=== PATIENT | male | born 1955 | race Caucasian/White ===

== ENCOUNTER 2019-10-27 10:12 | Inpatient (IN) | payer MEDICARE, OTHER ==
[2019-10-27] MEDS ORDERED: Ketorolac Tromethamine 30 MG/ML VIAL ONE (12:22)
[2019-10-27 12:38] LABS: #Basophils 0.1 thou/uL (0.0-0.2); #Eosinphils 0.1 thou/uL (0.0-0.7); #Lymphocytes 1.8 thou/uL (1.20-3.40); #Monocytes 0.8 thou/uL (0.11-0.59); #Neutrophils 5.3 thou/uL (1.40-6.50); %Basophils 1.4 % (0.0-1.0); %Eosinophils 1.7 % (0.0-10.0); %Lymphocytes 21.6 % (21.0-51.0); %Monocytes 9.7 % (0.0-10.0); %Neutrophils 65.6 % (42.0-75.0); Hemoglobin 16.4 g/dL (14.0-18.0); Mean Corpuscular HGB CONC 34.5 g/dL (32.0-36.0); Mean Corpuscular Hemoglobin 30.7 pg (27.0-31.0); Mean Corpuscular Volume 88.9 fL (78.0-98.0); Mean Platelet Volume 6.7 fL (7.4-10.4); Platelet Count 278 thou/uL (130-400); RBC Distribution Width 11.7 % (11.5-14.5); Red Blood Cell (RBC) Count 5.33 mill/uL (4.70-6.10); White Blood Cell (WBC) Count 8.1 thou/uL (4.8-10.8)
[2019-10-27] MEDS ORDERED: Acetaminophen 325 MG TAB PO PRN (12:50)
[2019-10-27] MEDS ORDERED: traMADol HCl 50 MG TAB PO PRN (12:50)
[2019-10-27] MEDS ORDERED: Ketorolac Tromethamine 30 MG/ML VIAL IVP PRN (12:50)
[2019-10-27] MEDS ORDERED: Morphine 2 MG/ML SYRINGE SLOW IVP PRN (12:50)
[2019-10-27] MEDS ORDERED: Acetaminophen/Codeine 30-300mg Tablet PO PRN (12:50)
[2019-10-27 13:00] LABS: ALT (SGPT) 15 U/L (8-55); AST (SGOT) 14 U/L (5-34); Albumin 4.3 g/dL (3.4-4.8); Alkaline Phosphatase 57 U/L (40-110); Anion Gap 12 mmol/L (10-20); BUN (Urea Nitrogen) 27 mg/dL (8.4-25.7); Calc. Creatinine Clearance 0 mL/min (70-130); Calcium 9.3 mg/dL (7.8-10.44); Carbon Dioxide 27 mmol/L (23-31); Chloride 101 mmol/L (98-107); Estimated GFR-MDRD 83; Globulin 2.5 g/dL (2.4-3.5); Glucose 111 mg/dL (80-115); Potassium 3.2 mmol/L (3.5-5.1); Protein, Total 6.8 g/dL (5.8-8.1); Sodium 137 mmol/L (136-145)
--- NOTE | 2019-10-27 13:56 | MRI ---
Exam: THORACIC SPINE MRI WITH AND WITHOUT CONTRAST: HISTORY: Leg numbness. Weakness. Difficulty emanating. Postop back pain. COMPARISON: None. FINDINGS: Heterogeneous T1 marrow signal intensity of the thoracic vertebra. Mild deformity along the superior endplate of T6, T7 which is felt to be chronic. Intrinsic T1 hypointensity with associated T2 and STIR hyperintensity at the T12 vertebral body. There does appear to be homogeneous enhancement. Lacie cterization is incomplete. The superior focus does have some intrinsic T1 hyperintensity. Findings may represent a complex cyst with a fat fluid level. The superior portion does not have signal intens ity on the postcontrast fat saturated images. Visualized mediastinum, lung parenchyma and solid organs have appropriate signal intensity. The thoracic cord has a normal size and signal intensity. No cord expansion. No cord malacia. Conus m edullaris terminates beyond the T12 vertebral body level. Postcontrast images do not demonstrate any pathologic cord enhancement. C7-T1: Broad-based disc bulge with at least mild central canal stenosis. T1-T2: No significant central canal stenosis. T2-T3: Central disc herniation. No significant central canal stenosis. T3-T4 through T10-T11: No posterior disc abnormality. No significant central canal stenosis. T11-T12: Mild loss of disc space height. Broad-based disc bulge with at least [id number] centra l canal stenosis. Mild flattening of the thoracic cord. IMPRESSION: 1. Degenerative changes of the thoracic spine as above. 2. No pathologic enhancement of the thoracic cord. 3. Mixed signal lesion at the T12 vertebral body. Complex osseous cyst is favored with a fat fluid le edith. Transcribed Date/Time: 10/27/2019 2:09 PM
[2019-10-27] MEDS ORDERED: Magnevist 469MG/ML 20 ML VIAL ONE ×2 (14:18)
--- NOTE | 2019-10-27 14:45 | MRI ---
MRI LUMBAR SPINE WITH AND WITHOUT CONTRAST: DATE: 10/27/2019 HISTORY: 64-year-old male with myelopathy and postoperative low back pain. COMPARISON: None TECHNIQUE: Multiple sequences obtained in axial and sagittal planes, pre and post IV injection of gadolinium-bas ed contrast agent. FINDINGS: There are 5 lumbar-type vertebrae. Vertebral body heights are maintained. Exaggerated lordosis of low er lumbar spine. At all levels superior to L3-4, the spinal canal is diffusely small in caliber on a congenital basis due to developmentally short pedicles. This is exacerbated by lumbar spondylosis a s described below. At L3-4 and all levels inferior to it, there are laminectomies relieving the central spinal canal stenosis. There is intramedullary T2-hyperintense signal beginning at upper L1 l evel, and extending down to the conus medullaris at mid L2 level. This fluid signal intensity which resembles a syrinx, occupies the right side of the spinal cord. There is a small second such syrinx c omponent occupying midline, which begins at mid L1 and extends down to L1-2 level. There is no definite intramedullary enhancement. However, there is enhancement of intrathecal nerve roots, beginn ing at approximately mid L1 level, and continuing with enhancement of clumped cauda equina nerve roots throughout all levels inferior to it. The enhancement and clumping are consistent with arachnoi ditis. There is no evidence of solid enhancing neoplastic tumor within the spinal canal. T12-L1:Shallow, broad-based central and bilateral paracentral disc herniation, which indents the spin al cord, displacing it slightly posteriorly, and causing moderate central spinal canal stenosis. No neural foraminal stenosis. L1-2:Mild to moderate disc space narrowing. Diffuse disc bulge and possible superimposed shallow cent ral disc protrusion. Moderate central spinal canal stenosis. Mild to moderate bilateral neural foraminal stenosis. L2-3:Moderate disc space narrowing. Somewhat large diffuse disc bulge, superimposed on the developmen tally small caliber spinal canal, which, together with ligamentum flavum thickening and mild degenerative facet hypertrophy, results in severe central spinal canal stenosis with crowding of the cauda equina and obliteration of CSF signal. Moderate bilateral neural foraminal stenosis. L3-4:Bilateral pedicle screws at L3 and L4. Midline laminectomy defect. Mild central spinal canal cheng nosis. Lateral recess stenosis bilaterally. Mild retrolisthesis of L3 on L4. Interbody cage material in the disc space. Moderate disc space narrowing. Possible partial ankylosis between the end plates. Moderate bilateral neural foraminal stenosis. L4-5:Interbody cage material. Interbody disc space maintained with cage material. Midline laminectomy defect. No central spinal canal stenosis. No high-grade neural foraminal stenosis. Anteriorly placed screws at L4 vertebral body. L5-S1:Midline laminectomy defect. No central spinal canal stenosis. No high-grade neural foraminal st enosis. Interbody cage material. Bilateral pedicle screws at L5 and S1. Anteriorly placed screws at L5 vertebral body. IMPRESSION: 1) severe central spinal canal stenosis at L2-3. 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 Recommend co rrelation with the density of this fluid (hyperdense?) on the recent outside CT myelogram. 3) conus medullaris terminates at the lowest limit of normal, approximately L2-3 4) status post midline laminectomies, and posterior lumbar interbody fusion with hardware, at L3-4, L 4-5, and L5-S1. 5) arachnoiditis. 6) lumbar spondylosis, with multilevel degenerative disc disease at all levels superior to L3.
[2019-10-27] MEDS: HYDROcodone/Acetaminophen 7.5/325 mg Tablet PO PRN (15:02)
[2019-10-27 15:29] VITALS: BMI 25.7
[2019-10-27] MEDS: Dexamethasone 4 MG TAB PO SCH (20:02)
[2019-10-27] MEDS ORDERED: clonazePAM 0.5 MG TAB PO SCH (22:15)
[2019-10-27] MEDS: tiZANidine HCl 4 MG TAB PO PRN (22:26)
--- NOTE | 2019-10-28 01:40 | HP ---
CHIEF COMPLAINT: Low back pain and bilateral leg pain and weakness. HISTORY OF PRESENT ILLNESS: Mr. Brower is a 64-year-old gentleman, who presents for increasing low back pain and bilateral leg symptoms. This has been chronic for many years; however, it acutely worsened last week after he underwent a CT myelogram of the lumbar spine, during which, contrast was injected into his spinal cord. Since then, he has had worsened pain, increased leg weakness, and increased difficulty ambulating with his legs giving out to a point where he needs to lay down. He also has had a urinary retention and had a Christian catheter placed last weekend. At this time, the patient reports bilateral leg pain that is approximately equal in severity, somewhat greater in the right leg. He also reports lower extremity paresthesias and dysesthesias in both feet. The patient has a prior history of anterior and posterior lumbar spine instrumented fusion at an outside institution. Recent imaging including CT of the lumbar spine and CT myelogram of the lumbar spine demonstrated potential fusion at the levels previously operated on as well as what appears to be an L3 screw causing direct nerve root compression. Our team will obtain MRIs of the thoracic and lumbar spine with and without contrast for further evaluation and surgical planning. However, based on prior imaging, it appears that he has stenosis at L2-L3 and at this time, our current surgical plan will be to perform L2-L3 laminectomy, partial facetectomies, and foraminotomies with removal of the left L3 screw. PAST MEDICAL HISTORY: Hypertension, hypothyroidism, anxiety, and depression. PAST SURGICAL HISTORY: Anterior and posterior lumbar spine instrumented fusion at outside institution. SOCIAL HISTORY: No tobacco use. MEDICATIONS: See list. No aspirin or other anticoagulants. ALLERGIES: NO KNOWN DRUG ALLERGIES. REVIEW OF SYSTEMS: Positive for low back pain, bilateral leg pain, bilateral leg weakness, bilateral foot paresthesias and dysesthesias, and urinary retention. Otherwise, 12-point review of systems is negative. PHYSICAL EXAMINATION: The patient is awake, alert, and appropriate. A and O x3. The patient appears somewhat uncomfortable but is in no acute distress. He has trace weakness in his iliopsoas myotome, otherwise he has 5/5 strength throughout the bilateral lower extremity myotomes. Subjective medial and lateral decreased sensation in both feet. Gait was not assessed at this time. Flat affect. IMPRESSION/DIAGNOSES: 1. Lumbar stenosis. 2. Lumbar radiculopathy. PLAN: This case was discussed and imaging reviewed with Dr. Page. While the patient underwent a CT myelogram of the lumbar spine at [facility] last 10/19/2019, this showed bilateral lateral recess stenosis and central stenosis at L2-L3. Also noted was appearance of contrast dye within the spinal cord itself. No contrast was visualized below the L2 level. Thus, unable to determine if any additional stenosis was present based on this imaging. The patient does appear to be fused at the prior levels of operation. The left L3 screw appears to be impinging on the nerve root. Our team has ordered MRIs of the thoracic and lumbar spine with and without contrast for additional surgical planning. Our team will take the patient to the OR tomorrow morning for L2-L3 laminectomy, partial facetectomies, and foraminotomies with removal of left L3 screw and all other indicated procedures. Based on the MRI findings, we may add-on to our surgical plan. The patient will be n.p.o. at midnight. Our team will re-evaluate patient in the morning for further surgical discussion. Please call for any neurologic changes or other concerns. This was a 50-minute initial hospital visit, in which greater than 50% of the time was spent in review of records, review of imaging, evaluation, examination, and formulation of a plan. The remaining time was spent in counseling and coordination of care. Job ID: [id number]
[2019-10-28] MEDS: Dexamethasone 4 MG TAB PO SCH ×4 (01:45→20:09)
[2019-10-28] MEDS: Levothyroxine Sodium 50 MCG TAB PO SCH (05:04)
[2019-10-28 05:13] LABS: #Lymphocytes 0.9 thou/uL (1.20-3.40); #Monocytes 0.1 thou/uL (0.11-0.59); #Neutrophils 5.5 thou/uL (1.40-6.50); %Basophils 0.6 % (0.0-1.0); %Eosinophils 0.4 % (0.0-10.0); %Lymphocytes 14.2 % (21.0-51.0); %Monocytes 1.4 % (0.0-10.0); %Neutrophils 83.5 % (42.0-75.0); Hemoglobin 15.6 g/dL (14.0-18.0); Mean Corpuscular HGB CONC 33.2 g/dL (32.0-36.0); Mean Corpuscular Hemoglobin 29.6 pg (27.0-31.0); Mean Corpuscular Volume 89.1 fL (78.0-98.0); Mean Platelet Volume 6.6 fL (7.4-10.4); Platelet Count 269 thou/uL (130-400); RBC Distribution Width 11.7 % (11.5-14.5); Red Blood Cell (RBC) Count 5.28 mill/uL (4.70-6.10); White Blood Cell (WBC) Count 6.5 thou/uL (4.8-10.8)
[2019-10-28] MEDS: HYDROcodone/Acetaminophen 7.5/325 mg Tablet PO PRN ×2 (05:18→18:19)
[2019-10-28 05:19] LABS: INR-International Normal Ratio 1.1; PTT 36.5 sec (22.9-36.1); Prothrombin Time 13.7 sec (12.0-14.7)
[2019-10-28 05:33] LABS: Anion Gap 11 mmol/L (10-20); BUN (Urea Nitrogen) 27 mg/dL (8.4-25.7); Calc. Creatinine Clearance 103 mL/min (70-130); Carbon Dioxide 25 mmol/L (23-31); Chloride 104 mmol/L (98-107); Estimated GFR-MDRD Greater than 90; Glucose 155 mg/dL (80-115); Potassium 3.9 mmol/L (3.5-5.1); Sodium 136 mmol/L (136-145)
[2019-10-28] MEDS: FLUoxetine HCl 10 MG CAP PO SCH (09:00)
[2019-10-28] MEDS: Potassium Chloride 20 MEQ TAB PO SCH (09:00)
[2019-10-28] MEDS: Lisinopril/Hydrochlorothiazide 20 mg/12.5 mg Tablet PO SCH (09:00)
[2019-10-28] MEDS: Bupropion 150 MG SR TAB PO SCH (09:00)
[2019-10-28] MEDS ORDERED: Thrombin 5000 UNITS/5 ML VIAL ONE (09:47)
[2019-10-28] MEDS ORDERED: Fentanyl 250 MCG/5 ML VIAL ONE (09:53)
[2019-10-28] MEDS ORDERED: Midazolam HCl 2 mg/2 ml Vial ONE (09:53)
--- NOTE | 2019-10-28 10:32 | PRG ---
DATE OF SERVICE: 10/28/2019 SUBJECTIVE: Mr. Timi Brower, who goes by Anton is a very pleasant 64-year-old gentleman, whom we saw for an outpatient consultation in [place] in 2014. He had an L3-S1 anterior-posterior construct with decompression. He states that his pain did not improve postoperatively. He also states he had increased left thigh pain postoperatively. Review of a CT scan demonstrated essentially a well-positioned construct from L3-S1 with the exception of a left L3 screw that appears medial to the pedicle and encroaching upon the exiting left L3 nerve root. Perhaps, this relates to the patient's postoperative increased left L3 dermatomal pain. He has had increased low back and bilateral leg pain consistent with neurogenic claudication to the point where he has difficulty standing and states he spends the majority of his time recumbent, which he used to say out of the gravity vector. We obtained a CT myelogram that was done at [facility] on October 18. At the time of the myelogram, it appears by my review that the patient had an intramedullary injection at L1-L2 of dye during the myelogram resulting in an iatrogenic syrinx and the patient reports immediate pain and paraplegia below the level of the L1 sensory level. This also confirmed high-grade stenosis at L2-L3. The patient recovered some sensation, although he continues to have reduced light touch sensation and while he has good strength on manual muscle testing, he does have right dorsiflexor weakness that is quite mild, but he states he has improved. He has not recovered bladder function and this warranted presentation to the [facility] ER, for which he had a 1000 mL in his bladder and a Christian catheter was placed. I spoke to the patient on the phone on Thursday, October 25 and let him know that I wanted to admit him to [place] for emergent MRI of the thoracic and lumbar spine without and with contrast. This was done and demonstrates no worrisome compression of the cord in the thoracic spine, but does demonstrate hyperintensity on T2 MRI at L1-L2, consistent with the myelogram from [facility] indicating eccentric to the right and central cord filling of contrast. He has severe compression at L2-L3 with moderate disk extrusion throughout the canal. Below L2-L3, he does not have any worrisome compression and does in fact have evidence of fusion from L3-S1. There is also evidence of arachnoiditis consistent with his prior surgery. I have let the patient know regarding the iatrogenic syrinx in his cord with myelographic dye. I have never seen this before and I am unsure as to the prognosis. I am disappointed that the physician has not reached out to the patient and I was the one who let the patient know of this news. From a surgical standpoint, he needs to have a decompression at L2-L3. I think this will maximize any chance of improvement. He also needs to have the left L3 screw removed as it is encroaching upon the exiting left L3 nerve root. We had a long discussion about all of this and I have let him know that I would be in favor of inpatient rehab following the decompression. I would keep him on likely an 8-day Decadron taper to try and relieve his conus syndrome from the myelogram. Goals, indications, risks, alternatives, and complications were discussed in detail with Mr. Brower regarding L2-L3 laminectomy, partial facetectomy, foraminotomy with possible bilateral diskectomy, and removal of left L3 screw. He understands the risks are up to and including, but not limited to, wound healing issues such as infection, bleeding, spinal fluid leak, medical and surgical complications, the need for more surgery and in particular contraction of hodges virus. He understands all these risks and also understands that if we do not do this surgery, that he could have further neurologic decline. In regard to recovery from his cord injury from the myelogram, again, I am uncertain as to the prognosis there. I will likely involve Urology postoperatively in his care for long-term followup. DIAGNOSES: 1. 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 2. Lumbar stenosis consistent with proximal adjacent segment disease and neurogenic claudication. 3. Medial left L3 screw encroaching upon the left L3 nerve root. Job ID: [id number]
[2019-10-28] MEDS ORDERED: Phenylephrine 10 MG/ML VIAL ONE (11:29)
[2019-10-28] MEDS ORDERED: Ketamine 50 MG/ML (10ML VIAL) ONE (11:43)
[2019-10-28] MEDS ORDERED: Ondansetron PF 4 MG/2 ML Vial ONE (11:54)
[2019-10-28] MEDS ORDERED: PHENYLEPHRINE-NS 100 MCG/ML 10 ML SYRINGE ONE (11:54)
[2019-10-28] MEDS ORDERED: Ketorolac Tromethamine 30 MG/ML VIAL ONE (11:54)
[2019-10-28] MEDS ORDERED: diphenhydrAMINE 50 MG/ML VIAL ONE (11:54)
[2019-10-28] MEDS ORDERED: PROPOFOL 200 MG/20 ML VIAL ONE (11:54)
[2019-10-28] MEDS ORDERED: Dexamethasone 20 MG/5 ML VIAL ONE (11:54)
[2019-10-28] MEDS ORDERED: Glycopyrrolate 0.2 MG/ML 5 ML SYRINGE ONE (11:54)
[2019-10-28] MEDS ORDERED: Rocuronium Bromide 10 MG/ML (10ML VIAL) ONE (11:54)
--- NOTE | 2019-10-28 12:46 | RAD ---
EXAM: XR Lumbar Spine 1 view DATE: 10/28/2019 12:00 AM INDICATION: Surgical localization in the operating room COMPARISON: MR the lumbar spine with and without contrast dated October 27, 2019 FINDING: Single submitted lateral projection of the lower lumbar spine demonstrates an sharp and angelic ed instrument probe pointing to the posterior central aspect of the L3 vertebral body. An additional small rounded probe points to the posterior inferior aspect of the L2 vertebral body. Ther e are intervertebral disc cages at L3-4, L4-5 and L5-S1. There is posterior lateral spinal instrumentation from L3 through L5. There are anterior setscrews involving the anterior inferior aspe ct of L5 and L4. IMPRESSION:Intraoperative film of the lumbar spine as above for localization purposes.
[2019-10-28 12:55] LABS: SARS-CoV-2 MS2 Positive; SARS-CoV-2 N Gene Negative; SARS-CoV-2 S Gene Negative; SARS-CoV-2 orf1ab Negative
[2019-10-28] MEDS ORDERED: HYDROmorphone 2 MG/ML VIAL SLOW IVP PRN (13:42)
[2019-10-28] MEDS ORDERED: Meperidine HCl/PF 25 MG/ML VIAL SLOW IVP PRN (13:42)
[2019-10-28] MEDS ORDERED: Morphine Sulfate 2 MG/ML SYRINGE SLOW IVP PRN (13:42)
[2019-10-28] MEDS ORDERED: PACU-Morphine 4MG/ML VIAL SLOW IVP PRN (13:42)
[2019-10-28] MEDS ORDERED: Ondansetron HCl/PF 4 MG/2 ML Vial IVP PRN (13:42)
[2019-10-28] MEDS ORDERED: Promethazine HCl 25 MG/ML VIAL IM PRN (13:42)
[2019-10-28] MEDS ORDERED: Fentanyl 100 MCG/2 ML VIAL ONE ×2 (13:50→14:08)
--- NOTE | 2019-10-28 17:21 | OP ---
DATE OF PROCEDURE: 10/28/2019 TELEPHONE SALES REPRESENTATIVE: Hanh Byrd PA-C PREPROCEDURE DIAGNOSIS: Proximal adjacent segment stenosis above prior L3 through S1 fusion done at an outside institution with neurogenic claudication. POSTPROCEDURE DIAGNOSIS: Proximal adjacent segment stenosis above prior L3 through S1 fusion done at an outside institution with neurogenic claudication. PROCEDURES PERFORMED: 1. L2-L3 laminectomy, partial facetectomy, foraminotomy. 2. Removal of left L3 pedicle screw that was encroaching upon the left L3 nerve root. DESCRIPTION OF PROCEDURE: After informed consent was obtained from the patient, the patient was brought to the OR. Proper patient, pause, and identification were carried out. He was placed under excellent endotracheal anesthesia and positioned prone on the OR table. All appropriate points were padded. We identified an incision to allow for approach to the L2-L3 segment, but also removal of the left L3 screw. This region was sterilely cleansed, prepared, and draped. Proper patient, pause, and identification were carried out. The wound had been drawn out. After proper patient, pause, and identification, we then opened up with sharp, blunt, and monopolar dissection the L2-L3 segments. We then performed localization film. The left L3 screw was removed as I had to remove the cap screw and had to cut the ravindra between the left L3 and left L3 screws. This was done, that portion of the ravindra removed and the left L3 screw removed with ease. There was no spinal fluid leak. We then did an L2-L3 laminectomy, partial facetectomy, and foraminotomy. I then brought the microscope in for microdissection. I removed disk material in the right L2-L3 lateral recess, in fact in the right L3 traversing nerve root. We had excellent decompression of the common dural tube and bilateral L2-L3 nerve roots. Copious irrigation occurred throughout as did maximizing hemostasis. There was no spinal fluid leak. Job ID: [id number]
[2019-10-28] MEDS: CEFAZOLIN 2 GM in Premix Bag 1 BAG IVPB SCH (18:20)
[2019-10-28] MEDS: clonazePAM 0.5 MG TAB PO SCH (20:09)
[2019-10-28] MEDS: tiZANidine HCl 4 MG TAB PO PRN (20:10)
[2019-10-29] MEDS: Dexamethasone 4 MG TAB PO SCH ×4 (01:04→20:16)
[2019-10-29] MEDS: CEFAZOLIN 2 GM in Premix Bag 1 BAG IVPB SCH (01:05)
[2019-10-29] MEDS: Levothyroxine Sodium 50 MCG TAB PO SCH (05:19)
[2019-10-29] MEDS: Lisinopril/Hydrochlorothiazide 20 mg/12.5 mg Tablet PO SCH (08:51)
[2019-10-29] MEDS: Potassium Chloride 20 MEQ TAB PO SCH (08:51)
[2019-10-29] MEDS: HYDROcodone/Acetaminophen 7.5/325 mg Tablet PO PRN ×3 (08:54→18:10)
[2019-10-29] MEDS: Bupropion 150 MG SR TAB PO SCH (08:54)
[2019-10-29] MEDS: FLUoxetine HCl 10 MG CAP PO SCH (08:55)
[2019-10-29] MEDS: tiZANidine HCl 4 MG TAB PO PRN (08:56)
--- NOTE | 2019-10-29 11:53 | PRG ---
DATE OF SERVICE: 10/29/2019 Mr. Brower states he was improved following his L2-L3 laminectomy and removal of the left L3 screw. His leg pain he states has significantly improved as is his light touch sensory abnormality between below the L1 segment and above. He remains with a Christian catheter in place and has perineal sensation that is intact. His strength is excellent throughout his lower extremity myotomes. This is an excellent news. I have let Dr. Peralta, his primary care physician know Mr. Brower's status over the last couple weeks including the myelogram. We will work on inpatient rehab. I have reached out to Urology as well as I suspect the patient will need long-term followup for his urinary retention related to his conus syndrome. Job ID: [id number]
[2019-10-29] MEDS ORDERED: Enoxaparin Sodium 40 MG/0.4 ML SYRINGE SC SCH (12:45)
[2019-10-29] MEDS: Docusate 100 MG CAP PO PRN (14:04)
[2019-10-29] MEDS: clonazePAM 0.5 MG TAB PO SCH (20:16)
[2019-10-30] MEDS: Dexamethasone 4 MG TAB PO SCH ×5 (01:14→21:42)
[2019-10-30] MEDS: HYDROcodone/Acetaminophen 7.5/325 mg Tablet PO PRN ×4 (01:15→20:17)
[2019-10-30] MEDS: Levothyroxine Sodium 50 MCG TAB PO SCH (06:16)
[2019-10-30] MEDS: Lisinopril/Hydrochlorothiazide 20 mg/12.5 mg Tablet PO SCH (09:36)
[2019-10-30] MEDS: tiZANidine HCl 4 MG TAB PO PRN (09:36)
[2019-10-30] MEDS: Potassium Chloride 20 MEQ TAB PO SCH (09:36)
[2019-10-30] MEDS: Docusate 100 MG CAP PO PRN (09:36)
[2019-10-30] MEDS: Enoxaparin Sodium 40 MG/0.4 ML SYRINGE SC SCH (09:37)
[2019-10-30] MEDS: Bupropion 150 MG SR TAB PO SCH (09:42)
[2019-10-30] MEDS: FLUoxetine HCl 10 MG CAP PO SCH (09:42)
--- NOTE | 2019-10-30 10:51 | PRG ---
DATE OF SERVICE: 10/30/2019 SUBJECTIVE: Mr. Brower is postoperative day #2 from L2-L3 laminectomy, removal of medial left L3 screws. He states he standing better. He still is unsteady on his feet and notices right greater than lower extremity functional weakness. He also has a syrinx in his cord from the myelogram that is acentric to the right, but does span over into the left cord. I suspect this is playing a role in his right greater than left lower extremity weakness. I spoke with Dr. Grimes regarding the patient's urinary retention and he recommended keeping the Christian catheter in for another 7 [address] Grimes will see him in outpatient followup. The patient needs inpatient rehab and may go as early as today. Job ID: [id number]
[2019-10-30] MEDS: clonazePAM 0.5 MG TAB PO SCH (20:16)
[2019-10-31] MEDS: Dexamethasone 4 MG TAB PO SCH ×3 (04:38→16:23)
[2019-10-31] MEDS: Levothyroxine Sodium 50 MCG TAB PO SCH (04:38)
[2019-10-31 07:51] VITALS: TEMP 97.6
[2019-10-31] MEDS: HYDROcodone/Acetaminophen 7.5/325 mg Tablet PO PRN (08:11)
[2019-10-31] MEDS: FLUoxetine HCl 10 MG CAP PO SCH (08:13)
[2019-10-31] MEDS: Bupropion 150 MG SR TAB PO SCH (08:14)
[2019-10-31] MEDS: Potassium Chloride 20 MEQ TAB PO SCH (08:14)
[2019-10-31] MEDS: Lisinopril/Hydrochlorothiazide 20 mg/12.5 mg Tablet PO SCH (08:14)
[2019-10-31] MEDS: Enoxaparin Sodium 40 MG/0.4 ML SYRINGE SC SCH (08:32)
--- NOTE | 2019-10-31 09:19 | PRG ---
DATE OF SERVICE: 10/31/2019 Mr. Brower is doing exceptionally well even walked 280 feet yesterday, this is a remarkable improvement. His leg pain is substantially reduced compared to before surgery. He feels as if his strength is getting better. He remains with an indwelling Christian catheter and I spoke with Dr. Grimes, who will arrange for outpatient followup. The patient certainly has improved neurologically throughout his lower extremities with almost completely intact strength throughout with some weakness in the right lower extremity, but this is trace. His dressing is dry and the patient was asked about going home. I would be fine with this. We will arrange appropriate followup. Job ID: [id number]
[2019-10-31 11:23] VITALS: BP 144/86
[2019-11-01] MEDS ORDERED: Dexamethasone 1 MG TAB PO SCH (10:00)
[2019-11-03] MEDS ORDERED: Dexamethasone 1 MG TAB PO SCH (10:00)
[2019-11-05] MEDS ORDERED: Dexamethasone 1 MG TAB PO SCH (10:00)
== END 2019-10-31 16:25 | disposition home health service (06) | DRG 519 ==
LOC: ERS 10:12 → SURG B 12:31
PROVIDERS: ADMIT Surgery; ATTEND Surgery
PROC: 01NB0ZZ Release Lumbar Nerve, Open Approach (ICD-10-PCS; principal; 2019-10-28)
PROC: 0SP004Z Removal of Internal Fixation Device from Lumbar Vertebral Joint, Open Approach (ICD-10-PCS; 2019-10-28)
PROC: 0SB20ZZ Excision of Lumbar Vertebral Disc, Open Approach (ICD-10-PCS; 2019-10-28)
DX: M48.062 Spinal stenosis, lumbar region with neurogenic claudication (principal); G95.0 Syringomyelia and syringobulbia; G82.20 Paraplegia, unspecified; G95.81 Conus medullaris syndrome; Z11.59 Encounter for screening for other viral diseases; M54.16 Radiculopathy, lumbar region; I10 Essential (primary) hypertension; F41.9 Anxiety disorder, unspecified; F32.9 Major depressive disorder, single episode, unspecified; E03.9 Hypothyroidism, unspecified; R33.9 Retention of urine, unspecified; Z79.899 Other long term (current) drug therapy; Z79.890 Hormone replacement therapy; Z98.1 Arthrodesis status
CPT/HCPCS: 36415; 72020; 72157; 72158; 76000; 80048; 80053; 83605; 85025; 85610; 85652; 85730; 86140; 87635; 96374; A9579; J0690; J1100; J1200; J1650; J1885; J2250; J2370; J2405; J2704; J3010; J3370; J8540; U0003

== ENCOUNTER 2020-01-24 07:34 | Outpatient (CLI) | payer MEDICARE, OTHER ==
[2020-01-24 17:59] LABS: Hemoglobin 15.1 g/dL (14.0-18.0); Mean Corpuscular HGB CONC 33.3 g/dL (32.0-36.0); Mean Corpuscular Hemoglobin 30.8 pg (27.0-31.0); Mean Corpuscular Volume 92.5 fL (78.0-98.0); Platelet Count 267 thou/uL (130-400); RBC Distribution Width 12.3 % (11.5-14.5); Red Blood Cell (RBC) Count 4.91 mill/uL (4.70-6.10); White Blood Cell (WBC) Count 6.7 thou/uL (4.8-10.8)
[2020-01-24 18:05] LABS: INR-International Normal Ratio 0.9
[2020-01-24 18:06] LABS: PTT 35.8 sec (22.9-36.1)
[2020-01-24 18:34] LABS: Bilirubin Negative (Negative); Blood, Urine Negative (Negative); Clarity Turbid (Clear); Glucose, Urine (Dipstick) Normal (Negative); Ketone, Urine Negative (Negative); Leukocyte 250 Leu/uL (Negative); Nitrite 2+ (Negative); Protein, Urine (Dipstick) Negative (Neg-Trace); RBC/HPF 0-3 HPF (0-3); Specific Gravity, Urine 1.011 (1.002-1.036); Squamous Epithelial 0-3 HPF (0-3); Urobilinogen Normal mg/dL (Less than 2); WBC/HPF 21-50 HPF (0-3)
[2020-01-24 18:47] LABS: Bacteria/HPF 4+ HPF (None Seen)
[2020-01-24 18:56] LABS: Anion Gap 15 mmol/L (10-20); BUN (Urea Nitrogen) 22 mg/dL (8.4-25.7); Calc. Creatinine Clearance 0 mL/min (70-130); Calcium 9.4 mg/dL (7.8-10.44); Carbon Dioxide 22 mmol/L (23-31); Chloride 107 mmol/L (98-107); Estimated GFR-MDRD 71; Glucose 168 mg/dL (80-115); Potassium 3.9 mmol/L (3.5-5.1); Sodium 140 mmol/L (136-145)
--- NOTE | 2020-01-25 07:15 | EKG ---
Test Reason : Blood Pressure : / mmHG Vent. Rate : 087 BPM Atrial Rate : 087 BPM P-R Int : 190 ms QRS Dur : 102 ms QT Int : 382 ms P-R-T Axes : 057 -49 068 degrees QTc Int : 459 ms Normal sinus rhythm Left anterior fascicular block Abnormal ECG No previous ECGs available Confirmed by DR. Nikole MCINTYRE ([id number]) on 01/25/2020 7:14:50 AM Referred By: BABATUNDE Confirmed By:DR. Nikole MCINTYRE
[2020-01-25 11:55] LABS: SARS-CoV-2 MS2 Positive; SARS-CoV-2 N Gene Negative; SARS-CoV-2 S Gene Negative; SARS-CoV-2 by NAA Not Detected (NotDetected); SARS-CoV-2 orf1ab Negative
== END 2020-01-24 07:35 | disposition home or self-care (01) ==
LOC: LABBT 07:34
PROVIDERS: ATTEND Urology
DX: Z01.818 Encounter for other preprocedural examination (principal); N40.1 Benign prostatic hyperplasia with lower urinary tract symptoms; N13.8 Other obstructive and reflux uropathy; N31.9 Neuromuscular dysfunction of bladder, unspecified; R33.9 Retention of urine, unspecified; Z20.828 Contact with and (suspected) exposure to other viral communicable diseases
CPT/HCPCS: 80048; 81001; 85027; 85610; 85730; 87086; 93005; U0003; 87077; 87186; 87635; 93010

== ENCOUNTER 2020-01-27 07:06 | Day surgery (SDC) | payer MEDICARE ==
[2020-01-25 14:52] VITALS: BMI 23.7
[2020-01-27] MEDS ORDERED: B & O ONE (07:49)
[2020-01-27] MEDS ORDERED: Levofloxacin 500 mg/D5W 100 ml Premix Bag ONE (08:15)
[2020-01-27] MEDS ORDERED: Midazolam HCl 2 mg/2 ml Vial ONE (08:57)
[2020-01-27] MEDS ORDERED: PROPOFOL 200 MG/20 ML VIAL ONE (10:15)
[2020-01-27] MEDS ORDERED: HYDROcodone/Acetaminophen 5/325 mg Tablet ONE (10:18)
[2020-01-27] MEDS ORDERED: Oxybutynin 5 MG TAB ONE (10:30)
[2020-01-27] MEDS ORDERED: Phenazopyridine HCl 100 MG TAB ONE (10:30)
--- NOTE | 2020-01-27 10:57 | OP ---
DATE OF PROCEDURE: 01/27/2020 SERVICE: Urology. PREOPERATIVE DIAGNOSIS: Benign prostatic hypertrophy with obstruction. POSTOPERATIVE DIAGNOSIS: Benign prostatic hypertrophy with obstruction. PROCEDURE PERFORMED: UroLift x4 implants. INDICATION FOR PROCEDURE: Mr. Brower is a 64-year-old white male with history of BPH with elements of bladder under activity and obstruction. He has a history of undergoing a TURP over 10 years ago. Unfortunately, his urine stream has been declining since then. It was equivocal whether this was primarily due to a weakening bladder versus re-obstruction from his prostate. Cystoscopy did demonstrate a dominant obstructing nodule and I told him that he may benefit from either resection or UroLift implantation to push this out of the way. He did undergo urodynamics, but unfortunately was not able to urinate. Therefore, the results were not valid. After discussion of his options, he elected to proceed forward with UroLift procedure. Risks and benefits were discussed and he has agreed to proceed forward. DESCRIPTION OF PROCEDURE: After identification of armband and verification of consent, the patient was brought back to the operating room, where he underwent total intravenous anesthesia. He was then placed in dorsal lithotomy position, and prepped and draped in usual sterile fashion. After appropriate time-out, a lubricated 21-Greek rigid cystoscope was introduced per urethra into the bladder. The visual obturator was switched out for the UroLift implantation device. Initial implants were performed on the dominant prostate nodule that was growing from the right lateral prostate. The center of the nodule was compressed completely until it was out of the way from the prostatic lumen. The safety was released and the blue trigger fired to deploy the Nitinol needle. Tension and the capsular tab were placed using the frank trigger. The UroLift was then advanced forward until the white line was in the keyhole and then the blue release was performed to deploy the urethral end piece. This did result in nice compression of the dominant nodule; however, there was a bulge somewhat below and prominently above the implant. A 2nd UroLift implant was stacked above the original one to further compress the nodule. A 3rd implant was also placed on the distal aspect of this nodule to get further compression, which then completely unobstructed the nodule. There was another apical nodule towards the right anterior prostate, which was tacked back with the 4th UroLift implant. At this point, there was a very open prostatic channel. I do not feel he has any residual obstruction and I do not think any additional procedures would be beneficial to him. If he is still not able to urinate at this point, it is probably due to bladder underactivity. At this point, the UroLift was removed and an 18-Greek Christian catheter was placed into the patient's bladder with 10 cc of sterile water into the balloon. A B and O suppository was placed in his rectum. He was taken out of positioning, awakened, taken to Day Stay for recovery in stable condition. COMPLICATIONS: None. ESTIMATED BLOOD LOSS: Minimal. RETAINED TUBES AND DRAINS: An 18-Greek Christian catheter. SPECIMENS: None. IMPLANTS USED: 4. DISPOSITION: The patient will be monitored with his catheter. As long as his urine is not very bloody, his catheter can be removed and he can be discharged home. The patient already performed CIC at home and may continue to do so for inability to urinate at home. Job ID: [id number]
== END 2020-01-27 12:00 | disposition home or self-care (01) ==
LOC: SDC 07:06
PROVIDERS: ATTEND Urology
PROC: 0T7D8DZ Dilation of Urethra with Intraluminal Device, Via Natural or Artificial Opening Endoscopic (ICD-10-PCS; principal; 2020-01-27)
DX: N40.1 Benign prostatic hyperplasia with lower urinary tract symptoms (principal); N13.8 Other obstructive and reflux uropathy; R33.8 Other retention of urine; N31.9 Neuromuscular dysfunction of bladder, unspecified; Z79.899 Other long term (current) drug therapy
CPT/HCPCS: C1889; C9740; J1956; J2250; J2704

== ENCOUNTER 2020-08-13 12:43 | Outpatient (CLI) | payer MEDICARE ==
[2020-08-14 01:18] LABS: SARS-CoV-2 PCR by NAA Not Detected (NotDetected)
== END 2020-08-13 12:44 | disposition home or self-care (01) ==
LOC: LABBT 12:43
PROVIDERS: ATTEND Specialist
DX: Z01.812 Encounter for preprocedural laboratory examination (principal); M96.1 Postlaminectomy syndrome, not elsewhere classified; G89.4 Chronic pain syndrome; Z20.822 Contact with and (suspected) exposure to COVID-19
CPT/HCPCS: U0003; U0005; 87635

== ENCOUNTER 2020-08-16 06:02 | Day surgery (SDC) | payer MEDICARE ==
[2020-08-15 12:03] VITALS: BMI 26.4
[2020-08-16] MEDS ORDERED: Dexmedetomidine 200 MCG/2 ML VIAL ONE (06:56)
[2020-08-16] MEDS ORDERED: Fentanyl 100 MCG/2 ML VIAL ONE ×2 (06:56→07:26)
[2020-08-16] MEDS ORDERED: Propofol 500 MG/50 ML VIAL ONE (07:09)
[2020-08-16] MEDS ORDERED: Bupivacaine PF 0.5% 30 ML VIAL ONE (07:17)
[2020-08-16] MEDS ORDERED: EPINEPHrine 1 MG/ML AMP ONE (07:17)
[2020-08-16] MEDS ORDERED: Lidocaine 1% PF 5 ML VIAL ONE (08:00)
[2020-08-16] MEDS ORDERED: HYDROmorphone 0.5 MG/0.5 ML SYRINGE ONE (08:12)
[2020-08-16] MEDS ORDERED: HYDROcodone/Acetaminophen 5/325 mg Tablet ONE (10:31)
[2020-08-16] MEDS ORDERED: methylPREDNISolone Sod Succ/PF 125 MG/2 ML VIAL IVP SCH (11:15)
== END 2020-08-16 11:50 | disposition home or self-care (01) ==
LOC: SDC 06:02
PROVIDERS: ATTEND Specialist
PROC: 0JH70BZ Insertion of Single Array Stimulator Generator into Back Subcutaneous Tissue and Fascia, Open Approach (ICD-10-PCS; principal; 2020-08-16)
PROC: 00HU3MZ Insertion of Neurostimulator Lead into Spinal Canal, Percutaneous Approach (ICD-10-PCS; 2020-08-16)
DX: G89.4 Chronic pain syndrome (principal); M96.1 Postlaminectomy syndrome, not elsewhere classified; M54.16 Radiculopathy, lumbar region; N52.9 Male erectile dysfunction, unspecified; Z79.899 Other long term (current) drug therapy
CPT/HCPCS: 72070; 76000; C1778; C1787; J0171; J1170; J2704; J2930; J3010; L8687; L8689; S0020

== ENCOUNTER 2021-02-19 13:32 | Outpatient (CLI) | payer MEDICARE | END 2021-02-19 13:33 | disposition home or self-care (01) | LOC: MRI 13:32 | PROVIDERS: ATTEND Surgery | DX: M47.16 Other spondylosis with myelopathy, lumbar region (principal); M54.50 Low back pain, unspecified; Z98.890 Other specified postprocedural states | CPT/HCPCS: 72157; 72158; 82565 ==

== ENCOUNTER 2021-04-19 08:47 | Inpatient (IN) | payer MEDICARE ==
[2021-04-19] MEDS ORDERED: Fentanyl 100 MCG/2 ML VIAL ONE (10:33)
[2021-04-19 10:50] LABS: #Eosinphils 0.2 thou/uL (0.0-0.7); #Lymphocytes 1.9 thou/uL (1.20-3.40); #Monocytes 0.4 thou/uL (0.11-0.59); #Neutrophils 2.2 thou/uL (1.40-6.50); %Basophils 0.5 % (0.0-1.0); %Lymphocytes 40.3 % (21.0-51.0); %Monocytes 8.8 % (0.0-10.0); %Neutrophils 46.4 % (42.0-75.0); Hemoglobin 13.5 g/dL (14.0-18.0); Mean Corpuscular HGB CONC 33.6 g/dL (32.0-36.0); Mean Corpuscular Volume 89.3 fL (78.0-98.0); Mean Platelet Volume 6.6 fL (7.4-10.4); Platelet Count 261 thou/uL (130-400); RBC Distribution Width 11.7 % (11.5-14.5); White Blood Cell (WBC) Count 4.8 thou/uL (4.8-10.8)
[2021-04-19 11:12] LABS: ALT (SGPT) 17 U/L (8-55); AST (SGOT) 16 U/L (5-34); Albumin 3.8 g/dL (3.4-4.8); Alkaline Phosphatase 64 U/L (40-110); Anion Gap 12 mmol/L (10-20); BUN (Urea Nitrogen) 16 mg/dL (8.4-25.7); Calc. Creatinine Clearance 0 mL/min (70-130); Calcium 9.5 mg/dL (7.8-10.44); Carbon Dioxide 25 mmol/L (23-31); Chloride 109 mmol/L (98-107); Globulin 2.3 g/dL (2.4-3.5); Glucose 95 mg/dL (80-115); Potassium 3.5 mmol/L (3.5-5.1); Protein, Total 6.1 g/dL (5.8-8.1); Sodium 142 mmol/L (136-145)
[2021-04-19 12:11] LABS: Bacteria/HPF 4+ HPF (None Seen); Bilirubin Negative (Negative); Blood, Urine Negative (Negative); Clarity Clear (Clear); Glucose, Urine (Dipstick) Normal (Negative); Ketone, Urine 20 mg/dL (Negative); Leukocyte 25 Leu/uL (Negative); Nitrite Negative (Negative); Protein, Urine (Dipstick) Negative (Neg-Trace); RBC/HPF 0-3 HPF (0-3); Specific Gravity, Urine 1.013 (1.002-1.036); Squamous Epithelial None Seen HPF (0-3); Urobilinogen Normal mg/dL (Less than 2)
[2021-04-19] MEDS ORDERED: Morphine 4 MG/ML VIAL ONE (12:55)
[2021-04-19] MEDS ORDERED: HYDROcodone/Acetaminophen 10/325 mg Tablet PO SCH ×2 (15:00→18:00)
[2021-04-19] MEDS ORDERED: Morphine 4 MG/ML VIAL SLOW IVP PRN (17:25)
[2021-04-19 17:39] VITALS: BMI 22.8
[2021-04-19] MEDS: Fentanyl 100 MCG/2 ML VIAL SLOW IVP PRN (20:10)
[2021-04-19] MEDS ORDERED: cloNIDine 0.1 MG TAB PO PRN (22:24)
[2021-04-19] MEDS: HYDROcodone/Acetaminophen 10/325 mg Tablet PO SCH (23:52)
[2021-04-19] MEDS: Gabapentin 400 MG CAP PO PRN (23:53)
[2021-04-19] MEDS: Baclofen 10 MG TAB PO PRN (23:56)
[2021-04-20] MEDS: HYDROcodone/Acetaminophen 10/325 mg Tablet PO SCH (06:00)
[2021-04-20] MEDS: Levothyroxine Sodium 50 MCG TAB PO SCH (06:01)
[2021-04-20] MEDS: Cefdinir 300 MG CAP PO SCH ×2 (08:26→21:01)
[2021-04-20] MEDS: Baclofen 10 MG TAB PO PRN ×2 (08:26→15:56)
[2021-04-20] MEDS: Enoxaparin Sodium 40 MG/0.4 ML SYRINGE SC SCH (08:27)
[2021-04-20] MEDS: Gabapentin 400 MG CAP PO PRN ×2 (08:27→15:55)
[2021-04-20] MEDS: Lisinopril/Hydrochlorothiazide 20 mg/12.5 mg Tablet PO SCH (08:27)
[2021-04-20] MEDS: Bupropion 100 MG SR TAB PO SCH (08:28)
[2021-04-20] MEDS ORDERED: oxyCODONE/Acetaminophen 5 mg/325 mg Tablet PO PRN (09:16)
[2021-04-20 11:53] LABS: SARS-CoV-2 PCR by NAA Not Detected (NotDetected)
[2021-04-20] MEDS ORDERED: oxyCODONE/Acetaminophen 5 mg/325 mg Tablet PO SCH (12:30)
[2021-04-20] MEDS: Fentanyl 100 MCG/2 ML VIAL SLOW IVP PRN ×2 (16:13→21:03)
[2021-04-20] MEDS: oxyCODONE/Acetaminophen 5 mg/325 mg Tablet PO SCH ×2 (17:34→23:25)
[2021-04-20] MEDS: Senokot S 8.6-50 MG TAB PO SCH (21:01)
[2021-04-20] MEDS: Ondansetron ODT 4 MG TAB PO PRN (21:03)
[2021-04-21] MEDS: Levothyroxine Sodium 50 MCG TAB PO SCH (05:12)
[2021-04-21] MEDS: oxyCODONE/Acetaminophen 5 mg/325 mg Tablet PO SCH ×3 (05:13→17:16)
[2021-04-21] MEDS: Lisinopril/Hydrochlorothiazide 20 mg/12.5 mg Tablet PO SCH (08:30)
[2021-04-21] MEDS: Senokot S 8.6-50 MG TAB PO SCH ×2 (08:30→20:50)
[2021-04-21] MEDS: Enoxaparin Sodium 40 MG/0.4 ML SYRINGE SC SCH (08:31)
[2021-04-21] MEDS: Cefdinir 300 MG CAP PO SCH ×2 (08:31→20:50)
[2021-04-21] MEDS: Baclofen 10 MG TAB PO PRN (08:32)
[2021-04-21] MEDS: Gabapentin 400 MG CAP PO PRN (08:32)
[2021-04-21] MEDS: Bupropion 100 MG SR TAB PO SCH (09:31)
[2021-04-21] MEDS ORDERED: buPROPion 75 MG TAB PO SCH (13:45)
[2021-04-21] MEDS ORDERED: buPROPion HCl 100 MG TAB PO SCH (13:45)
[2021-04-21] MEDS: Gabapentin 400 MG CAP PO SCH ×2 (14:32→20:55)
[2021-04-21] MEDS: Baclofen 10 MG TAB PO SCH ×2 (14:32→20:50)
[2021-04-22] MEDS: Fentanyl 100 MCG/2 ML VIAL SLOW IVP PRN (02:55)
[2021-04-22] MEDS: Levothyroxine Sodium 50 MCG TAB PO SCH (05:36)
[2021-04-22] MEDS: oxyCODONE/Acetaminophen 5 mg/325 mg Tablet PO SCH ×2 (05:38)
[2021-04-22] MEDS ORDERED: Thrombin 5000 UNITS/5 ML VIAL ONE (06:42)
[2021-04-22] MEDS ORDERED: ceFAZolin 2 GM/DEX 5% 100 ML BAG ONE (07:15)
[2021-04-22] MEDS ORDERED: Fentanyl 250 MCG/5 ML VIAL ONE (07:18)
[2021-04-22] MEDS ORDERED: Dexmedetomidine 200 MCG/2 ML VIAL ONE (07:18)
[2021-04-22] MEDS ORDERED: Ketamine 50 MG/ML (10ML VIAL) ONE (07:30)
[2021-04-22] MEDS ORDERED: Midazolam HCl 2 mg/2 ml Vial ONE (07:30)
[2021-04-22] MEDS ORDERED: Vancomycin 1 GM/200 ML BAG ONE (07:38)
[2021-04-22] MEDS ORDERED: Dexamethasone 20 MG/5 ML VIAL ONE (07:52)
[2021-04-22] MEDS ORDERED: Lidocaine 1% PF 5 ML VIAL ONE (07:52)
[2021-04-22] MEDS ORDERED: Phenylephrine 10 MG/ML VIAL ONE (07:52)
[2021-04-22] MEDS ORDERED: Rocuronium Bromide 10 MG/ML (10ML VIAL) ONE (07:52)
[2021-04-22] MEDS ORDERED: ePHEDrine 50 MG/ML VIAL ONE (07:52)
[2021-04-22] MEDS ORDERED: Ondansetron PF 4 MG/2 ML Vial ONE (07:52)
[2021-04-22] MEDS ORDERED: Ketorolac Tromethamine 30 MG/ML VIAL ONE (07:52)
[2021-04-22] MEDS ORDERED: Glycopyrrolate 0.2 MG/ML 5 ML SYRINGE ONE (07:52)
[2021-04-22] MEDS ORDERED: PROPOFOL 200 MG/20 ML VIAL ONE (07:52)
[2021-04-22] MEDS ORDERED: EPINEPHrine 1 MG/ML AMP ONE (08:14)
[2021-04-22] MEDS ORDERED: Bupivacaine PF 0.5% 30 ML VIAL ONE (08:14)
[2021-04-22] MEDS: Senokot S 8.6-50 MG TAB PO SCH ×2 (09:32→20:52)
[2021-04-22] MEDS: Baclofen 10 MG TAB PO SCH ×3 (09:32→20:52)
[2021-04-22] MEDS: Gabapentin 400 MG CAP PO SCH ×3 (09:32→20:52)
[2021-04-22] MEDS ORDERED: PACU-Morphine 4MG/ML VIAL SLOW IVP PRN (11:32)
[2021-04-22] MEDS ORDERED: Ondansetron HCl/PF 4 MG/2 ML Vial IVP PRN (11:32)
[2021-04-22] MEDS ORDERED: Promethazine HCl 25 MG/ML VIAL IVPB PRN (11:32)
[2021-04-22] MEDS ORDERED: Promethazine HCl 25 MG/ML VIAL IM PRN (11:32)
[2021-04-22] MEDS ORDERED: Morphine Sulfate 2 MG/ML SYRINGE SLOW IVP PRN (11:32)
[2021-04-22] MEDS ORDERED: Morphine 4 MG/ML VIAL ONE ×2 (11:37→11:52)
[2021-04-22] MEDS ORDERED: Acetaminophen 325 MG TAB PO PRN (11:40)
[2021-04-22] MEDS: Lisinopril/Hydrochlorothiazide 20 mg/12.5 mg Tablet PO SCH (12:01)
[2021-04-22] MEDS: oxyCODONE ER 20 MG TAB PO SCH ×2 (13:10→20:52)
[2021-04-22] MEDS: Cefdinir 300 MG CAP PO SCH ×2 (13:10→20:52)
[2021-04-22] MEDS: buPROPion HCl 100 MG TAB PO SCH (14:02)
[2021-04-22] MEDS: buPROPion 75 MG TAB PO SCH (14:03)
[2021-04-22] MEDS: Morphine 4 MG/ML VIAL SLOW IVP PRN ×2 (14:03→19:19)
[2021-04-23] MEDS: Morphine 4 MG/ML VIAL SLOW IVP PRN ×4 (05:52→22:28)
[2021-04-23] MEDS: Levothyroxine Sodium 50 MCG TAB PO SCH (05:53)
[2021-04-23] MEDS: Gabapentin 400 MG CAP PO SCH ×3 (08:20→21:40)
[2021-04-23] MEDS: buPROPion 75 MG TAB PO SCH (08:20)
[2021-04-23] MEDS: Senokot S 8.6-50 MG TAB PO SCH ×2 (08:20→21:40)
[2021-04-23] MEDS: Baclofen 10 MG TAB PO SCH ×3 (08:20→21:41)
[2021-04-23] MEDS: Cefdinir 300 MG CAP PO SCH ×2 (08:20→21:40)
[2021-04-23] MEDS: Lisinopril/Hydrochlorothiazide 20 mg/12.5 mg Tablet PO SCH (08:20)
[2021-04-23] MEDS: buPROPion HCl 100 MG TAB PO SCH (08:20)
[2021-04-23] MEDS: oxyCODONE ER 20 MG TAB PO SCH ×2 (08:21→21:40)
[2021-04-24] MEDS: Morphine 4 MG/ML VIAL SLOW IVP PRN ×8 (00:27→20:12)
[2021-04-24] MEDS: Levothyroxine Sodium 50 MCG TAB PO SCH (05:36)
[2021-04-24] MEDS: Gabapentin 400 MG CAP PO SCH ×3 (08:35→21:30)
[2021-04-24] MEDS: Lisinopril/Hydrochlorothiazide 20 mg/12.5 mg Tablet PO SCH (08:41)
[2021-04-24] MEDS: Baclofen 10 MG TAB PO SCH ×3 (08:41→21:30)
[2021-04-24] MEDS: oxyCODONE ER 20 MG TAB PO SCH ×2 (08:41→21:29)
[2021-04-24] MEDS: Cefdinir 300 MG CAP PO SCH ×2 (08:45→21:30)
[2021-04-24] MEDS: buPROPion 75 MG TAB PO SCH (08:45)
[2021-04-24] MEDS: buPROPion HCl 100 MG TAB PO SCH (08:45)
[2021-04-24] MEDS: Senokot S 8.6-50 MG TAB PO SCH ×2 (08:46→21:30)
[2021-04-24] MEDS ORDERED: methylPREDNISolone Sod Succ 40 MG VIAL IVP SCH (14:00)
[2021-04-24] MEDS ORDERED: oxyCODONE ER 20 MG TAB PO SCH (14:30)
[2021-04-24] MEDS: Ondansetron ODT 4 MG TAB PO PRN ×2 (16:14→23:12)
[2021-04-25] MEDS: Morphine 4 MG/ML VIAL SLOW IVP PRN ×2 (05:14→14:04)
[2021-04-25] MEDS: Levothyroxine Sodium 50 MCG TAB PO SCH (06:42)
[2021-04-25] MEDS: Lisinopril/Hydrochlorothiazide 20 mg/12.5 mg Tablet PO SCH (09:35)
[2021-04-25] MEDS: Gabapentin 400 MG CAP PO SCH ×2 (09:37→15:24)
[2021-04-25] MEDS: buPROPion 75 MG TAB PO SCH (09:39)
[2021-04-25] MEDS: Baclofen 10 MG TAB PO SCH ×2 (09:39→14:11)
[2021-04-25] MEDS: buPROPion HCl 100 MG TAB PO SCH (09:39)
[2021-04-25] MEDS: Cefdinir 300 MG CAP PO SCH (09:39)
[2021-04-25] MEDS: Senokot S 8.6-50 MG TAB PO SCH (09:39)
[2021-04-25] MEDS: oxyCODONE ER 20 MG TAB PO SCH (09:40)
[2021-04-25] MEDS: Ondansetron ODT 4 MG TAB PO PRN (10:30)
[2021-04-25] MEDS ORDERED: Dexamethasone 4 MG TAB PO SCH (12:00)
[2021-04-25] MEDS ORDERED: hydrOXYzine 25 MG TAB PO PRN (13:59)
[2021-04-25] MEDS ORDERED: hydrOXYzine 25 MG TAB PO SCH (14:00)
[2021-04-25 19:45] VITALS: BP 119/77; TEMP 97.5
[2021-04-27] MEDS ORDERED: Dexamethasone 1 MG TAB PO SCH (12:00)
[2021-04-29] MEDS ORDERED: Dexamethasone 1 MG TAB PO SCH (12:00)
[2021-05-01] MEDS ORDERED: Dexamethasone 1 MG TAB PO SCH (12:00)
== END 2021-04-25 20:23 | DRG 519 ==
LOC: ERS 08:47 → ERHOLD 12:48 → SJJU 16:54
PROVIDERS: ADMIT Student in an Organized Health Care Education/Training Program; ATTEND Student in an Organized Health Care Education/Training Program
PROC: 0SB20ZZ Excision of Lumbar Vertebral Disc, Open Approach (ICD-10-PCS; principal; 2021-04-22)
PROC: 00WV0MZ Revision of Neurostimulator Lead in Spinal Cord, Open Approach (ICD-10-PCS; 2021-04-22)
PROC: 01NB0ZZ Release Lumbar Nerve, Open Approach (ICD-10-PCS; 2021-04-22)
PROC: 0JWT0MZ Revision of Stimulator Generator in Trunk Subcutaneous Tissue and Fascia, Open Approach (ICD-10-PCS; 2021-04-22)
DX: M48.062 Spinal stenosis, lumbar region with neurogenic claudication (principal); G95.89 Other specified diseases of spinal cord; M50.023 Cervical disc disorder at C6-C7 level with myelopathy; N39.0 Urinary tract infection, site not specified; M96.1 Postlaminectomy syndrome, not elsewhere classified; Z20.822 Contact with and (suspected) exposure to COVID-19; I10 Essential (primary) hypertension; F41.9 Anxiety disorder, unspecified; F32.A Depression, unspecified; M51.26 Other intervertebral disc displacement, lumbar region; Y83.8 Other surgical procedures as the cause of abnormal reaction of the patient, or of later complication, without mention of misadventure at the time of the procedure; M50.123 Cervical disc disorder at C6-C7 level with radiculopathy; E03.9 Hypothyroidism, unspecified; G89.4 Chronic pain syndrome; M54.32 Sciatica, left side; M54.31 Sciatica, right side; Z88.5 Allergy status to narcotic agent; Z88.8 Allergy status to other drugs, medicaments and biological substances; Z79.890 Hormone replacement therapy; Z79.899 Other long term (current) drug therapy
CPT/HCPCS: 71045; 72050; 72141; 76000; 80053; 81003; 81015; 84484; 85025; 93005; 93970; 96374; 96375; C1713; C1778; J0171; J1100; J1650; J1885; J2250; J2270; J2370; J2405; J2704; J2920; J3010; J3370; J3490; J8540; Q0162; S0020; U0003; U0005

== ENCOUNTER 2021-10-23 07:38 | Outpatient (CLI) | payer MEDICARE | END 2021-10-23 07:39 | disposition home or self-care (01) | LOC: MRI 07:38 → BICMRI 07:39 | PROVIDERS: ATTEND Family Medicine | DX: M48.02 Spinal stenosis, cervical region (principal); M48.03 Spinal stenosis, cervicothoracic region; M50.30 Other cervical disc degeneration, unspecified cervical region | CPT/HCPCS: 72141 ==

== ENCOUNTER 2021-12-09 15:58 | Outpatient (CLI) | payer MEDICARE | END 2021-12-09 15:59 | disposition home or self-care (01) | LOC: LABBT 15:58 | PROVIDERS: ATTEND Specialist | DX: Z01.818 Encounter for other preprocedural examination (principal); Z20.822 Contact with and (suspected) exposure to COVID-19 | CPT/HCPCS: 87811; 93005; 93010 ==

== ENCOUNTER 2021-12-12 10:06 | Day surgery (SDC) | payer MEDICARE ==
[2021-12-10 12:03] VITALS: BMI 23.7
[2021-12-12] MEDS ORDERED: EPINEPHrine 1 MG/ML AMP ONE (11:37)
[2021-12-12] MEDS ORDERED: Bupivacaine PF 0.5% 30 ML VIAL ONE (11:37)
[2021-12-12] MEDS ORDERED: Propofol 500 MG/50 ML VIAL ONE (12:04)
[2021-12-12] MEDS ORDERED: fentaNYL Citrate/PF 100 MCG/2 ML SYRINGE ONE (12:23)
[2021-12-12] MEDS ORDERED: Ondansetron PF 4 MG/2 ML Vial ONE ×2 (12:23→12:43)
[2021-12-12] MEDS ORDERED: CEFAZOLIN 1 GM VIAL ONE (12:27)
[2021-12-12] MEDS ORDERED: Sodium Chloride 0.9% 100 ML ONE (12:27)
[2021-12-12] MEDS ORDERED: PROPOFOL 200 MG/20 ML VIAL ONE (12:43)
[2021-12-12] MEDS ORDERED: PROPOFOL 20 ML ONE (13:40)
[2021-12-12] MEDS ORDERED: HYDROcodone/Acetaminophen 5/325 mg Tablet ONE (14:33)
== END 2021-12-12 15:01 | disposition home or self-care (01) ==
LOC: SDC 10:06
PROVIDERS: ATTEND Specialist
PROC: 00PU3MZ Removal of Neurostimulator Lead from Spinal Canal, Percutaneous Approach (ICD-10-PCS; principal; 2021-12-12)
PROC: 0JPT0MZ Removal of Stimulator Generator from Trunk Subcutaneous Tissue and Fascia, Open Approach (ICD-10-PCS; 2021-12-12)
DX: T85.192A Other mechanical complication of implanted electronic neurostimulator of spinal cord electrode (lead), initial encounter (principal); G89.4 Chronic pain syndrome; M50.11 Cervical disc disorder with radiculopathy, high cervical region; M48.02 Spinal stenosis, cervical region; M47.816 Spondylosis without myelopathy or radiculopathy, lumbar region; M96.1 Postlaminectomy syndrome, not elsewhere classified; M47.22 Other spondylosis with radiculopathy, cervical region; N52.9 Male erectile dysfunction, unspecified; M48.03 Spinal stenosis, cervicothoracic region; Z79.1 Long term (current) use of non-steroidal anti-inflammatories (NSAID); Z79.899 Other long term (current) drug therapy; Y75.1 Therapeutic (nonsurgical) and rehabilitative neurological devices associated with adverse incidents
CPT/HCPCS: C1713; J0171; J0690; J2405; J2704; J3370; J3490; S0020

== ENCOUNTER 2022-03-26 10:14 | Emergency (ER) | payer MEDICARE ==
[2022-03-26] MEDS ORDERED: Iopamidol-370 76% 500 ML 1 ML ONE (11:11)
[2022-03-26 12:20] LABS: #Eosinphils 0.6 thou/uL (0.0-0.7); #Lymphocytes 1.7 thou/uL (1.20-3.40); #Monocytes 0.9 thou/uL (0.11-0.59); #Neutrophils 4.9 thou/uL (1.40-6.50); %Basophils 0.4 % (0.0-1.0); %Eosinophils 6.9 % (0.0-10.0); %Lymphocytes 20.8 % (21.0-51.0); %Monocytes 11.2 % (0.0-10.0); %Neutrophils 60.7 % (42.0-75.0); Hemoglobin 12.8 g/dL (14.0-18.0); Mean Corpuscular HGB CONC 32.7 g/dL (32.0-36.0); Mean Corpuscular Volume 91.5 fl (78.0-98.0); Mean Platelet Volume 6.3 fL (7.4-10.4); Platelet Count 300 10x3/uL (130-400); Red Blood Cell (RBC) Count 4.29 mill/uL (4.70-6.10)
[2022-03-26 12:39] LABS: ALT (SGPT) 20 U/L (8-55); AST (SGOT) 17 U/L (5-34); Albumin 3.9 g/dL (3.4-4.8); Alkaline Phosphatase 92 U/L (40-110); Anion Gap 12 mmol/L (10-20); BUN (Urea Nitrogen) 21 mg/dL (8.4-25.7); Bilirubin, Total 0.7 mg/dL (0.2-1.2); Calc. Creatinine Clearance 0 mL/min (70-130); Calcium 8.6 mg/dL (7.8-10.44); Carbon Dioxide 27 mmol/L (23-31); Chloride 104 mmol/L (98-107); Estimated GFR 98; Glucose 98 mg/dL (80-115); Potassium 4.2 mmol/L (3.5-5.1); Protein, Total 5.9 g/dL (5.8-8.1)
[2022-03-26 12:42] LABS: Sodium 139 mmol/L (136-145)
[2022-03-26 13:17] LABS: Bilirubin Negative (Negative); Blood, Urine Negative (Negative); Clarity Clear (Clear); Glucose, Urine (Dipstick) Normal (Negative); Ketone, Urine Negative (Negative); Leukocyte 75 Leu/uL (Negative); Nitrite Negative (Negative); Protein, Urine (Dipstick) 30 mg/dL (Neg-Trace); RBC/HPF 0-3 HPF (0-3); Specific Gravity, Urine 1.028 (1.002-1.036); Squamous Epithelial 0-3 HPF (0-3); Urobilinogen Normal mg/dL (Less than 2); WBC/HPF 21-50 HPF (0-3); pH, Urine 5.5 (5.0-9.0)
[2022-03-26 13:18] LABS: Bacteria/HPF Rare-Few HPF (None Seen)
[2022-03-26] MEDS ORDERED: HYDROcodone/Acetaminophen 5/325 mg Tablet ONE (16:09)
== END 2022-03-26 18:59 | disposition home or self-care (01) ==
LOC: ERS 10:14
DX: S22.43XA Multiple fractures of ribs, bilateral, initial encounter for closed fracture (principal); I10 Essential (primary) hypertension; W17.81XA Fall down embankment (hill), initial encounter; Z79.899 Other long term (current) drug therapy
CPT/HCPCS: 36415; 70450; 71260; 72125; 74177; 80053; 81003; 81015; 83880; 84484; 85025; 93005; Q9967